=== PATIENT | male | born 1960 | race Two or more races ===

== ENCOUNTER → 2024-04-29 | Outpatient (CLI) | payer MEDICAID, SELFPAY ==
--- NOTE | 2024-04-29 17:00 | XR_ITS ---
Examination: MRI cervical spine without intravenous contrast Date and time of exam: April 29, 2024 at 1703 hrs. Indications: Neck pain radiating to both shoulders both arms and hands beginning 3 months ago Technique: Multiple axial and sagittal sections of the cervical spine to been obtained. T2 weighted sagittal sections, TR 3, 270, TE 117 T1-weighted sagittal sections, TR 500, TE 11 T1-weighted axial sections, TR 607, TE 12, axial sections TR 18, TE 27 and T2 weighted transverse sections, TR 3920, TE 122. Findings: Exaggerated cervical lordosis No cervical fracture Intact odontoid Normal marrow signal cervical vertebral bodies Diffuse cervical disc desiccation No localized enlargement cervical cord No cervical syrinx cavity The axial images are significantly degraded in image quality Impression: Limited study No cervical fracture Diffuse cervical degenerative disc disease No significant acquired spinal stenosis
== END | disposition home or self-care (01) ==
LOC: SMRI 05-05 09:19
PROVIDERS: PCP Registered Nurse Community Health; Referring Provider Registered Nurse Community Health; Visit Provider Registered Nurse Community Health
DX: M50.30 Other cervical disc degeneration, unspecified cervical region (principal)
CPT/HCPCS: 72141

== ENCOUNTER 2024-10-29 08:56 | Emergency (ER) | payer MEDICAID, SELFPAY ==
[2024-10-29 09:35] VITALS: BP 124/76; PULSE 87; RESP 18; TEMP 37.2; O2SAT 95; BMI 34.4
--- NOTE | 2024-10-29 09:51 | XR_ITS ---
Examination: Right elbow 3 views Technique: Elbow AP, oblique, lateral 3 views Exam date and time: October 29, 2024 1001 hrs. Indications: Right elbow swelling and pain beginning 3 weeks ago. Findings: Soft tissue swelling posterior to the olecranon No fracture No elbow effusion Impression: Consider ultrasound soft tissue elbow follow-up to confirm olecranon bursitis.
--- NOTE | 2024-10-29 09:56 | PD.EDEXREM ---
ED Extremity Problem RME/HPI General Chief complaint: Extremity Problem,Nontraumatic Stated complaint: Right elbow swollen X 3 weeks Time Seen by Provider: 10/29/24 09:23 Arrival date/time: 10/29/24 08:56 This is a 64-year-old male that comes into the emergency room with complaints of swollen elbow for the last 3 weeks. Patient states he is currently on antibiotics. Patient was placed on doxycycline. Related Data Home Medications ?Medication ?Instructions ?Recorded ?Confirmed albuterol sulfate 1.25 mg/3 mL 2.5 mg inhalation Q12H 05/10/18 11/27/20 solution for nebulization lisinopril 2.5 mg tablet 5 mg PO QDAY 05/10/18 11/27/20 montelukast 10 mg tablet 10 mg PO QPM 05/10/18 11/27/20 (Singulair) multivitamin-ferrous 1 tab PO QAM 05/10/18 11/27/20 fumarate-folic acid 18 mg-400 mcg tablet (Centrum Complete) cholecalciferol (vitamin D3) 50 2,000 unit PO QDAY 05/02/19 11/27/20 mcg (2,000 unit) tablet (Vitamin D3) cyanocobalamin (vitamin B-12) 1,000 mcg PO QDAY 05/02/19 11/27/20 1,000 mcg tablet (Vitamin B-12) Previous Rx's ?Medication ?Instructions ?Recorded albuterol sulfate 90 mcg/actuation 2 inh inhalation Q4H PRN shortness 06/11/20 aerosol inhaler of breath or wheezing #8.5 grams levofloxacin 750 mg tablet 750 mg PO Q24H #10 tabs 05/07/21 naproxen 500 mg tablet 500 mg PO BID #30 tabs 11/09/21 prednisone 50 mg tablet 50 mg PO QDAY #7 tabs 09/18/23 doxycycline monohydrate 100 mg 100 mg PO BID #10 caps 11/02/23 capsule ibuprofen 800 mg tablet 800 mg PO Q6H PRN pain #14 tabs 10/29/24 Allergies Allergy/AdvReac Type Severity Reaction Status Date / Time azithromycin Allergy Severe Confusion Verified 10/29/24 09:00 Penicillins Allergy Severe Difficulty Verified 10/29/24 09:00 Breathing sulfamethoxazole AdvReac Severe Confusion Verified 10/29/24 09:00 trimethoprim AdvReac Severe Confusion Verified 10/29/24 09:00 Course Orders Category Date Time Status XR elbow comp RT min 3V Stat Exams 10/29/24 09:51 Completed Vital Signs Vital signs: Vital Signs Temperature 99.0 F 10/29/24 09:35 Pulse Rate 87 10/29/24 09:35 Respiratory Rate 18 10/29/24 09:35 Blood Pressure 124/76 10/29/24 09:35 Pulse Oximetry (%) 95 10/29/24 09:35 Oxygen Delivery Method Room Air 10/29/24 09:35 Extremity Problem MDM Narrative MDM Narrative:: Spoke to patient at length. Patient had this swelling to his elbow for approximately a month now. It appears that his primary doctor is treating him for the olecranon bursitis patient still on his antibiotic treatment. I talked to patient about removing the fluid in his elbow and that after usually a month it is generally not recommended I do recommend rest, ice, compression, elevation I will send him home with some ibuprofen. I will also send him home with an Bony wrap. Patient told to follow-up with primary provider in 1 to 2 days. Come back to the emergency room symptoms change or worsen. Patient verbalized understanding. Discharge Plan Plan Patient Disposition: HOME (Self Care) Patient condition on transfer: Stable Prescriptions/Referrals Prescriptions/Med Rec: New ibuprofen 800 mg tablet 800 mg PO Q6H PRN (Reason: pain) Qty: 14 0RF No Action albuterol sulfate 1.25 mg/3 mL Solution For Nebulization 2.5 mg INHALATION Q12H montelukast [Singulair] 10 mg Tablet 10 mg PO QPM lisinopril 2.5 mg Tablet 5 mg PO QDAY Centrum Complete 18-400 mg-mcg Tablet 1 tab PO QAM cyanocobalamin (vitamin B-12) [Vitamin B-12] 1,000 mcg Tablet 1,000 mcg PO QDAY cholecalciferol (vitamin D3) [Vitamin D3] 2,000 unit Tablet 2,000 unit PO QDAY albuterol sulfate 90 mcg/actuation HFA aerosol inhaler 2 inh inhalation Q4H PRN (Reason: shortness of breath or wheezing) Qty: 8.5 0RF levofloxacin 750 mg tablet 750 mg PO Q24H Qty: 10 0RF naproxen 500 mg tablet 500 mg PO BID Qty: 30 0RF prednisone 50 mg tablet 50 mg PO QDAY Qty: 7 0RF doxycycline monohydrate 100 mg capsule 100 mg PO BID Qty: 10 0RF Referrals: Angelica Horvath FNP [Primary Care Provider] - In 1 week Problem List Clinical Impression: Bursitis, olecranon, Elbow pain Patient/Caregiver Discharge Instructions Discharge Activity: activity as tolerated Education Materials: ED Bursitis Elbow Olecranon Additional Instructions: Continue antibiotics take ibuprofen for pain. Use elevation, ice and compression. Laly un chris con mart [facility] en las proximas 24-48 horas. Regrese a la karel de emergencias si hay evidencia de que los signos o sintomas empeoran. Print Language: [place] Stand Alone Forms: Cris Award Info., Patient Portal Info Letter PA/ANDREA Supervising Physician EVIE Supervising Physician: aj
[2024-10-29] MEDS: IBUPROFEN TAB 400 MG TABLET 800 MG PO (11:11)
[2024-10-29 11:15] VITALS: BP 121/73; PULSE 70; RESP 18; TEMP 36.7; O2SAT 99
== END 2024-10-29 11:16 | disposition home or self-care (01) ==
PROVIDERS: Emergency Provider Emergency Medicine; PCP Registered Nurse Community Health
DX: M70.21 Olecranon bursitis, right elbow (principal)
CPT/HCPCS: 73080; 99283; A9270